=== PATIENT | male | born 1930 | race Caucasian/White ===

== ENCOUNTER → 2018-12-17 | Outpatient (CLI) | payer MEDICARE, BC ==
[~2018-12-17] VITALS: Ht 172.7 cm; Wt 79.4 kg
[~2018-12-17] MED LIST: REGADENOSON 0.4 MG/5 ML SYR (LEXISCAN) IV ONE
[2018-12-17] MEDS: CATHETER FLUSH 10 ML SYR IV PRN ×2 (07:34→09:20)
[2018-12-17 09:18] VITALS: BP 130/77
--- NOTE | 2018-12-18 18:46 | STRESS TEST ---
DATE OF SERVICE: 12/17/2018 LEXISCAN MYOVIEW STRESS TEST REPORT REFERRING PHYSICIAN: Anshul Davies DO. Baseline heart rate is 60, baseline blood pressure 130/70. Baseline EKG is sinus rhythm with no ischemic changes. In summary, the patient was injected with 11.0 mCi of technetium-99 Myoview and the resting images were obtained. Then, the patient received 0.4 mg of Lexiscan followed by 32.8 mCi of technetium-99 Myoview. Throughout the test, patient was asymptomatic, no EKG changes. The resting and stress images were reviewed and compared in the short axis, horizontal long axis, and vertical long axis views. Review of the images showed good radiotracer uptake with no significant ischemia or infarction. SSS is 5, SDS 3, TID value 1.04. On the gated images, the left ventricle appeared to be in normal size with normal contractility. Calculated ejection fraction is 59%. CONCLUSION: 1. The patient tolerated Lexiscan well. 2. No ischemia or infarction on SPECT images. 3. Normal left ventricular size with normal contractility. Calculated ejection fraction is 59%. Job ID: [id number] DocumentID: [id number] Dictated Date: 12/18/2018 16:17:13 [employer] Of [employer] Associate Date: 12/18/2018 18:45:34 Dictated By: FRANK HILLS MD
== END ==
LOC: CARD 07:03
PROVIDERS: ATTEND Physician Assistant
DX: I25.10 Atherosclerotic heart disease of native coronary artery without angina pectoris (principal); R07.9 Chest pain, unspecified; I10 Essential (primary) hypertension; E78.2 Mixed hyperlipidemia
CPT/HCPCS: 78452; 93017

== ENCOUNTER → 2021-07-26 | Outpatient (CLI) | payer MEDICARE ==
[~2021-07-26] MED LIST changes: +CATHETER FLUSH 10 ML SYR IV PRN
[2021-07-26 09:27] VITALS: BP 155/73
[2021-07-26 09:30] VITALS: BP 116/73
--- NOTE | 2021-07-26 11:42 | Cardiology Stress Test Report ---
Stress Test Report Date of Procedure/Referring: Date of Procedure: Jul 26, 2021 PCP Frank Field MD Admitting Physician nAshul Davies DO Indications: HTN Baseline Heart Rate: 57 Baseline Blood Pressure: Blood Pressure Systolic: 116 Blood Pressure Diastolic: 73 Baseline Vitals Vital Signs Date Time Temp Pulse Resp B/P (MAP) Pulse Ox O2 Delivery O2 Flow Rate FiO2 07/26/21 09:27 65 155/73 (100) 07/26/21 09:30 18 98 Room Air Baseline EKG: Baseline EKG: NSR, 1st degree av block Summary After explaining the procedure to the patient, he signed a consent and then brought to the stress nuclear laboratory. Patient received 0.4 mg Lexiscan for stress test, ECG, heart rate and blood pressure were monitored continuously. Resting and stress dose of radio tracer were injected, imaging was acquired and reviewed in short axis, horizontal long axis and vertical long axis views. TID: 0.99 SSS: 3 SDS: 1 EF: 62 1. Patient tolerated Lexiscan well 2. Baseline EKG sinus rhythm with first-degree AV block 3. No significant ischemia or infarction on SPECT images 4. Normal left ventricular size, EF 62% FRANK FIELD MD Jul 26, 2021 11:42
== END ==
LOC: CARD 08:15
PROVIDERS: ATTEND Internal Medicine Cardiovascular Disease
DX: I10 Essential (primary) hypertension (principal); I25.10 Atherosclerotic heart disease of native coronary artery without angina pectoris
CPT/HCPCS: 78452; 93017; A9502